=== PATIENT | female | born 1975 | race Caucasian/White ===

== ENCOUNTER 2021-02-20 08:27 | Outpatient (REF) | payer OTHER, SELFPAY ==
[2021-02-20 10:55] LABS: MANUAL DIFF FLAG NO
[2021-02-20 10:57] LABS: Basophils Percent Auto 0.3 % (0-2); Hematocrit 38.3 % (37.0-47.0); Hemoglobin 11.9 g/dl (12.0-16.0); Imm Gran Abs Auto 0.02 X10*3/uL (0.00-0.03); Imm Gran Pct Auto 0.3 % (0.0-0.4); Lymphocytes Absolute Auto 1.6 X10*3/uL (1.2-4.9); Lymphocytes Percent Auto 24.4 % (20-40); Mean Corpuscular HGB Conc 31.1 g/dl (31.0-35.0); Mean Corpuscular Hemoglobin 24.9 pg (27.0-33.0); Mean Corpuscular Volume 80.3 fL (80.0-98.0); Mean Platelet Volume 9.6 fL (9.4-12.3); Monocytes Absolute Auto 0.7 X10*3/uL (0.1-1.2); Monocytes Percent Auto 11.3 % (2-11); Neutrophils Percent Auto 63.7 % (45-73); Platelet Count 279 X10*3/uL (160-400); Red Blood Count 4.77 X10*6/uL (4.20-5.50); Red Cell Distribution Width 13.1 % (11.0-16.0); White Blood Count 6.4 X10*3/uL (4.8-10.8)
[2021-02-20 11:03] LABS: Appearance Urine CLOUDY; Color Urine YELLOW; Glucose Urine UA NEG (NEG); Leukocyte Esterase Urine TRACE (NEG); Nitrite Urine NEG (NEG); Specific Gravity - Urine >= 1.030 (1.005-1.025); UACC Culture Trigger YES; Urine Blood TRACE (NEG); Urine Ketones 5 MG/DL (NEG); Urine Protein 1+ MG/DL (NEG-TRACE)
[2021-02-20 11:34] LABS: Rheumatoid Factor < 15.0 IU/mL (<15.0)
[2021-02-20 11:50] LABS: Amorphous Sediment Urine 4+ /LPF
[2021-02-20 11:51] LABS: Calcium Oxalate Crystals Urine 2+ /LPF
[2021-02-20 11:52] LABS: WBC Urine 30-49 /HPF (0-4)
[2021-02-20 11:53] LABS: Bacteria Urine TRACE /LPF; RBC Urine 0 /HPF (0)
[2021-02-20 11:58] LABS: Folate 17.6 ng/mL (> or = 4.0)
[2021-02-20 12:38] LABS: Vitamin B12 454 pg/mL (200-900)
== END 2021-02-20 08:28 | disposition home or self-care (01) ==
LOC: HO.WFDLDS 08:27
PROVIDERS: Absent Provider Internal Medicine; Visit Provider Internal Medicine
DX: M79.605 Pain in left leg (principal); M79.604 Pain in right leg; R53.83 Other fatigue; I89.0 Lymphedema, not elsewhere classified; Z20.822 Contact with and (suspected) exposure to COVID-19
CPT/HCPCS: 36415; 81001; 81003; 82607; 82746; 85025; 86431; 87086; C9803; U0003; U0005

== ENCOUNTER 2022-09-17 11:44 | Outpatient (AMB) | payer OTHER, SELFPAY ==
[2022-09-17 11:46] VITALS: BP 110/82; PULSE 107; O2SAT 96; BMI 26.9
--- NOTE | 2022-09-17 11:46 | MHC.PC.OV ---
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 Accompanied by: Self / Same As Patient Allergies acetaminophen [ACETAMINOPHEN] Allergy (Severe, Verified 09/18/22 00:52) GASTRIC ULCERS erythromycin base [ERYTHROMYCIN BASE] Allergy (Severe, Verified 09/18/22 00:52) RASH Medication List - Last Reconciled 09/18/22 by Ronal Nj MD alprazolam 2 mg PO TID PRN 30 days escitalopram oxalate 20 mg PO DAILY gabapentin 800 mg PO Q8H 30 days tizanidine 4 mg PO TID PRN 30 days zolpidem 10 mg PO BEDTIME PRN 30 days Tobacco use date assessed: 09/17/22 Dental Screening Dental Screen Date: 09/17/22 Did you have a dental visit in the last 12 months?: No Did you have a dental problem in the last 6 months where you did not have access to dental care?: No Was dental information given to patient?: No HPI med follow up HPI Details Patient comes in today for her follow up visit - patient has not been seen for follow up since 01/2021 (her last visit was just a telehealth visit) States that both of her legs have been swollen for the past 6 months or so Recalls that she tried to get in to walk-in clinic about 6 months ago to get this checked out but was reportedly told that she could not be seen at the time as the clinic was too busy States that her swelling seems to have gradually subsided over the past month but she remains concerned about her kidneys due to the swelling Adds that she has been experiencing worsening of her low back pain lately and states that she now has a hard time walking because of her increased pain Was seeing Dr. Hernandez in the past, who was managing her pain with opioids but was suspended /discharged from pain management a couple of years ago in 2020 for inappropriate UDS (supposedly had fentanyl in her urine) - feels that she was unfairly discharged as she has never used Fentany in the past Adds that she has lots of problems with her feet and would like to know what can be done for them at this time - has significantly deformed and dyshydrotic toenails on all of her toes on both feet and the soles of her feet are numb and covered in thick calluses Will also need her Alprazolam Rx refilled today She denies any headaches or dizziness Denies any chest pains, no shortness of breath No nausea/vomiting, no abdominal pain No change in bowel habits noted PFSH Medical History Anxiety Cervical disc disease Insomnia Lumbar degenerative disc disease Onychomycosis Overweight (BMI 25.0-29.9) Post traumatic stress disorder (PTSD) Smoker Surgical History (Updated 09/18/22 @ 02:07 by Ronal Nj MD) History of laparoscopic cholecystectomy History of toe surgery Neck pain with history of cervical spinal surgery S/P lumbar spinal fusion Family History Father No problems noted. Mother Diabetes Hypertension Daughter Type II diabetes mellitus Social History Housing: Other Housing Other:: trailer Alcohol intake: never Patient Tobacco Use Status: Current everyday Tobacco user Cigarettes Per Day: 4 e-Cigarette/Vaping Use: Never Used Second Hand Smoke Exposure: Yes service: No Current occupational status: employed and disabled Cognitive needs: No Hearing needs: No Vision needs: No Questionnaire PHQ-9 Over the last 2 weeks, how often have you been bothered by any of the following problems? 1. Little interest or pleasure in doing things: several days 2. Feeling down, depressed, or hopeless: several days 3. Trouble falling or staying asleep, or sleeping too much: several days 4. Feeling tired or having little energy: several days 5. Poor appetite or overeating: several days 6. Feeling bad about yourself - or that you are a failure or have let yourself or your family down: not at all 7. Trouble concentrating on things, such as reading the newspaper or watching television: not at all 8. Moving or speaking so slowly that other people could have noticed. Or the opposite - being so fidgety or restless that you have been moving around a lot more than usual: not at all 9. Thoughts that you would be better off or of hurting yourself in some way: not at all Total score: 5 Depression Screening Interpretation: Positive Depression Screening Follow-up: Existing condition and In treatment 05610 - PHQ-9 Billing: Yes Source: Developed by Drs. Cheo Heredia, John Gaston and colleagues, with an educational krish from [employer]. Thrive Questionnaire Date Thrive assessed: 09/17/22 I am a: Patient What is your living situation today?: I have a steady place to live Within the past 12 months, did the food you bought not last and you didn't have the money to get more?: Never true Within the past 12 months, did you worry whether your food would run out before you got money to buy more?: Never true Do you have trouble paying for medicines?: No Do you have trouble getting transportation to medical appointments?: No Do you have trouble paying your heating and electricity bill?: No Do you have trouble taking care of your child, family member or friend?: No Do you have trouble with day-to-day activities such as bathing, preparing meals, shopping, managing finances, etc.?: No Are you currently unemployed and looking for a job?: No Are you interested in more education?: No Please select the resources that you would like help with: None Currently or been in a relationship where the following occur: no concerns reported AUDIT C Alcohol Use Questionnaire (AUDIT-C) 1. How often do you have a drink containing alcohol?: Never 3. How often do you have six or more drinks on one occasion?: Never Total Score: 0 Score Reviewed/Action Taken: Yes BON-7 AMB Questionnaire BON-7 Date BON - 7 assessed: 09/17/22 Feeling nervous, anxious, or on edge: 1 = Several days Not being able to stop or control worryin = Several days Worrying too much about different things: 1 = Several days Trouble relaxin = Several days Being so restless that it is hard to sit still: 1 = Several days Becoming easily annoyed or irritable: 1 = Several days Feeling afraid as if something awful might happen: 1 = Several days Total BON-7 score (0-4 normal; 5-9 mild; 10-14 moderate; 15-21 severe): 7 Source: Developed by Jennifer Louis Kurt Kroenke and colleagues, with an educational krish from [employer]. Review of Systems Const Denies chills, Denies fatigue, Denies fever(s) and Denies headache(s) ENT Denies dysphagia, Denies dizziness, Denies headache(s), Reports neck pain (chronic), Denies odynophagia and Denies sore throat Card Denies chest pain, Denies palpitations and Denies dyspnea Resp Denies cough and Denies dyspnea GI Denies abdominal pain, Denies constipation, Denies dysphagia, Denies heartburn, Denies diarrhea, Denies nausea, Denies odynophagia and Denies vomiting Denies difficulty voiding, Denies nocturia and Denies dysuria Musc Reports back pain (over the lower back - chronic and increased lately) and Reports neck pain (chronic) Skin/Breast Details: (+) deformed and thickened toenails on both feet; bottom of feet are covered in thick calluses and feel numb Neuro Denies dizziness and Denies headache(s) Psych Reports anxiety Endo Denies fatigue and Denies palpitations Physical exam (Primary Care) Vital Signs: Last Vital Signs Pulse 107 H 09/17/22 11:46 BP 110/82 09/17/22 11:46 Pulse Ox 96 09/17/22 11:46 Oxygen Delivery Method Room Air 09/17/22 11:46 BMI result Body Mass Index 26.9 Tobacco/Smoking Status: Tobacco use Status Tobacco use date assessed 09/17/22 09/17/22 11:53 Patient Tobacco Use Status Current everyday Tobacco 09/17/22 11:53 e-Cigarette/Vaping Use Never Used 09/17/22 11:53 PHQ-9: PHQ-9 Score PHQ-9: Total score 5 09/17/22 12:15 Depression Screening Interpretation: Positive Depression Screening Follow-up: Existing condition and In treatment Thrive Assessment: Date of Thrive Assessment Date Thrive assessed 09/17/22 09/17/22 11:53 Currently or been in a relationship where the following occur: no concerns reported Const General: no acute distress and alert HENMT Ears: TM's normal bilaterally and EAC's normal Throat: Yes posterior oropharynx normal and Yes tonsils normal (no TP congestion) Neck Neck: Yes no lymphadenopathy and Yes tender (over the cervical spine) Resp Auscultation: clear to auscultation bilaterally, no rales and no wheezes Cardio Rate: regular rate Rhythm: regular rhythm Heart sounds: no murmurs GI Palpation (GI): Soft to palpation and nontender Auscultation: normal bowel sounds Back/Spine/Pelvis Cervical Spine: Cervical spine tenderness Thoracic/Lumbar Spine: lumbar spinal tenderness Skin General skin exam: no rashes or lesions noted Rashes: no rashes Extrem Other: (+) onycholysis with significantly disfigured and dyshydrotic toenails on all of her toes on both feet; the soles of both feet are covered in thick calluses General: Yes no clubbing, cyanosis or edema Assessment and Plan Assessment & Plan (1) Swelling of both lower extremities: Code(s): M79.89 - Other specified soft tissue disorders Plan: Is most likely due to lymphedema; her swelling appears to have mostly subsided currently Will send her for some labs KASSIE for further evaluation (2) Onychomycosis: Code(s): B35.1 - Tinea unguium Plan: Will refer her to podiatry for further evaluation and management (3) Keratoderma: Code(s): Q82.8 - Other specified congenital malformations of skin Plan: Will refer her to podiatry for further evaluation and management (4) Lumbar degenerative disc disease: Code(s): M51.36 - Other intervertebral disc degeneration, lumbar region Plan: S/P lumbar spine fusion back in 2009, which she states did not really result in any significant improvement of her symptoms Reinforced activity and weight-lifting restrictions Continue Tizanidine 4 mg TID PRN and will try to increase her Gabapentin from 600 mg to 800 mg TID Due to her increasing low back pain lately, will try to see if we can have her get a repeat lumbar spine MRI done for further evaluation (5) Cervical disc disease: Code(s): M50.90 - Cervical disc disorder, unspecified, unspecified cervical region Plan: S/P ADCF of C5-C6 and C6-C7 in 2017 - states that her surgery did not really help much Continue Tizanidine 4 mg TID PRN; Gabapentin will be increased to 800 mg TID (6) Insomnia: Code(s): G47.00 - Insomnia, unspecified Qualifiers: Insomnia type: unspecified Qualified Code(s): G47.00 - Insomnia, unspecified Plan: Sleep hygiene reinforced Continue Zolpidem 10 mg Q HS PRN (7) Anxiety: Code(s): F41.9 - Anxiety disorder, unspecified Plan: (+) PTSD Continue Alprazolam 2 mg TID PRN (Rx refilled) and Escitalopram 20 mg QD (8) Smoker: Code(s): F17.200 - Nicotine dependence, unspecified, uncomplicated Plan: Counseled again on smoking cessation (9) Overweight (BMI 25.0-29.9): Code(s): E66.3 - Overweight Plan: Reinforced diet; exercise and weight loss are unrealistic given patient's physical issues Plan Follow up in 3 months Orders: Orders Comprehensive Vandiver. Panel Fast 09/17/22 E78.00 - Pure hypercholesterolemia, unspecified Lipid Panel 09/17/22 E78.00 - Pure hypercholesterolemia, unspecified TSH reflex Free T4 09/17/22 E78.00 - Pure hypercholesterolemia, unspecified Vitamin D 25-OH Total 09/17/22 E55.9 - Vitamin D deficiency, unspecified Complete Blood Count Auto Diff 09/17/22 I10 - Essential (primary) hypertension UA CC w/rflx Micro + Cult 09/17/22 R30.0 - Dysuria MR lumbar spine wo con 09/17/22 M51.16 - Intervertebral disc disorders with radiculopathy, lumbar region, M51.36 - Other intervertebral disc degeneration, lumbar region Erythrocyte Sedimentation Rate 09/17/22 I89.0 - Lymphedema, not elsewhere classified, M79.604 - Pain in right leg, M79.605 - Pain in left leg Vitamin B12 and Folate 09/17/22 E53.8 - Deficiency of other specified B group vitamins B Type Natriuretic Peptide 09/17/22 I89.0 - Lymphedema, not elsewhere classified Referrals Podiatry Referral B35.1 - Tinea unguium, Q82.8 - Other specified congenital malformations of skin Medications: Changed From gabapentin 600 mg PO Q8H 30 days 90 tabs 5RF M50.90 - Cervical disc disorder, unspecified, unspecified cervical region, M51.36 - Other intervertebral disc degeneration, lumbar region To gabapentin 800 mg PO Q8H 30 days 90 tabs 5RF M50.90 - Cervical disc disorder, unspecified, unspecified cervical region, M51.36 - Other intervertebral disc degeneration, lumbar region From alprazolam LAST RX UNLESS PATIENT IS SEEN FOR FOLLOW UP - not seen since 01/2021 2 mg PO TID 15 days PRN 45 tabs 0RF anxiety F41.9 - Anxiety disorder, unspecified, F43.10 - Post-traumatic stress disorder, unspecified To alprazolam 2 mg PO TID 30 days PRN 90 tabs 0RF anxiety F41.9 - Anxiety disorder, unspecified, F43.10 - Post-traumatic stress disorder, unspecified Discontinued nirmatrelvir-ritonavir 150-100 mg (Paxlovid) Discontinued Reason: Patient Completed Course PO PER PKG DIR - Take 1 tablet of each med (150 mg + 100 mg) BID x 5 days 1 ea 0RF Coding Level of Care Code Est Pt Level 4 (25651) Diagnoses Swelling of both lower extremities M79.89 Onychomycosis B35.1 Keratoderma Q82.8 Lumbar degenerative disc disease M51.36 Cervical disc disease M50.90 Insomnia G47.00 Insomnia type: unspecified Anxiety F41.9 Smoker F17.200 Overweight (BMI 25.0-29.9) E66.3
== END 2022-09-17 12:28 | disposition home or self-care (01) ==
PROVIDERS: PCP Internal Medicine; Visit Provider Internal Medicine
DX: M79.89 Other specified soft tissue disorders (principal); B35.1 Tinea unguium; F17.200 Nicotine dependence, unspecified, uncomplicated; F41.9 Anxiety disorder, unspecified; Q82.8 Other specified congenital malformations of skin; M51.36 Other intervertebral disc degeneration, lumbar region; M50.90 Cervical disc disorder, unspecified, unspecified cervical region; G47.00 Insomnia, unspecified; E66.3 Overweight
CPT/HCPCS: 99214

== ENCOUNTER 2023-04-22 11:32 | Outpatient (AMB) | payer OTHER, SELFPAY ==
--- NOTE | 2023-04-22 11:33 | MHC.PC.OV ---
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 Accompanied by: Self / Same As Patient Allergies acetaminophen [ACETAMINOPHEN] Allergy (Severe, Verified 05/07/23 11:59) GASTRIC ULCERS erythromycin base [ERYTHROMYCIN BASE] Allergy (Severe, Verified 05/07/23 11:59) RASH Medication List - Last Reconciled 04/22/23 by Ronal Nj MD alprazolam 2 mg PO TID 3 days escitalopram oxalate 20 mg PO DAILY gabapentin 800 mg PO Q8H 30 days tizanidine 4 mg PO TID PRN 30 days zolpidem 10 mg PO BEDTIME PRN 30 days Tobacco use date assessed: 04/22/23 Dental Screening Dental Screen Date: 04/22/23 Did you have a dental visit in the last 12 months?: No Did you have a dental problem in the last 6 months where you did not have access to dental care?: No Was dental information given to patient?: No HPI follow up HPI Details Patient's follow up visit / consultation today is done over video conference (iPhone/iPad/[employer]er/[employer]) - this is a TELEHEALTH visit Patient's current medications have been reviewed and verified with patient and/or caregiver/proxy and have been updated accordingly in the medication list Patient states that she has been experiencing increased cough and congestion, chills, malaise and sore throat for the past 4 to 5 days so she requested to have her appointment today changed over to a telehealth visit instead States that she has been coughing up thick greenish phlegm often lately Relates (+) fatigue but she denies any fever Denies any chest pains; relates (+) increased chest congestion and states that her breathing feels slightly tight at times No nausea/vomiting, no abdominal pain No change in bowel habits noted Adds that she has been experiencing increased pain over her lower back and in her legs lately States that she has not been able to stand up straight lately while walking and has to use a cane to help support herself and that she cannot get up on her own nowadays when she goes to lie down due to her increased low back pain Also notes that her upper back, around the mid-scapular area, feels numb - is not sure what this is from Lastly, states that her leg pains have also been getting worse and that the painful lesions (corns) as well as the long, thick and disfigured toenails on both of her feet continue to bother her and she would like to get a referral again to podiatry to have them try to help her address these issues KASSIE She also needs her Alprazolam Rx refilled today PFSH Medical History Insomnia Onychomycosis Overweight (BMI 25.0-29.9) Smoker Anxiety Post traumatic stress disorder (PTSD) Lumbar degenerative disc disease Cervical disc disease Surgical History Neck pain with history of cervical spinal surgery History of toe surgery History of laparoscopic cholecystectomy S/P lumbar spinal fusion Family History Father No problems noted. Mother Diabetes Hypertension Daughter Type II diabetes mellitus Social History Housing: Other Housing Other:: trailer Alcohol intake: never Patient Tobacco Use Status: Former Tobacco user Cigarettes Per Day: 4 e-Cigarette/Vaping Use: Currently Using Second Hand Smoke Exposure: Yes service: No Current occupational status: employed and disabled Cognitive needs: Yes (cane) Hearing needs: No Vision needs: No Questionnaire PHQ-9 Over the last 2 weeks, how often have you been bothered by any of the following problems? 1. Little interest or pleasure in doing things: several days 2. Feeling down, depressed, or hopeless: several days 3. Trouble falling or staying asleep, or sleeping too much: several days 4. Feeling tired or having little energy: several days 5. Poor appetite or overeating: several days 6. Feeling bad about yourself - or that you are a failure or have let yourself or your family down: not at all 7. Trouble concentrating on things, such as reading the newspaper or watching television: not at all 8. Moving or speaking so slowly that other people could have noticed. Or the opposite - being so fidgety or restless that you have been moving around a lot more than usual: not at all 9. Thoughts that you would be better off or of hurting yourself in some way: not at all Total score: 5 Depression Screening Interpretation: Positive Depression Screening Follow-up: Existing condition and In treatment Depression Screening Done: Yes 62229 - PHQ-9 Billing: Yes Source: Developed by Drs. Cheo Heredia, Jennifer Proctor, John Marie and colleagues, with an educational krish from [employer]. Thrive Questionnaire Date Thrive assessed: 04/22/23 I am a: Patient What is your living situation today?: I have a steady place to live Within the past 12 months, did the food you bought not last and you didn't have the money to get more?: Never true Within the past 12 months, did you worry whether your food would run out before you got money to buy more?: Never true Do you have trouble paying for medicines?: No Do you have trouble getting transportation to medical appointments?: No Do you have trouble paying your heating and electricity bill?: No Do you have trouble taking care of your child, family member or friend?: No Do you have trouble with day-to-day activities such as bathing, preparing meals, shopping, managing finances, etc.?: No Are you currently unemployed and looking for a job?: No Are you interested in more education?: No Please select the resources that you would like help with: None Currently or been in a relationship where the following occur: no concerns reported THRIVE Score: 0 AUDIT C Alcohol Use Questionnaire (AUDIT-C) 1. How often do you have a drink containing alcohol?: Never 3. How often do you have six or more drinks on one occasion?: Never Total Score: 0 Score Reviewed/Action Taken: Yes BON-7 AMB Questionnaire BON-7 Date BON - 7 assessed: 04/22/23 Feeling nervous, anxious, or on edge: 1 = Several days Not being able to stop or control worryin = Several days Worrying too much about different things: 1 = Several days Trouble relaxin = Several days Being so restless that it is hard to sit still: 1 = Several days Becoming easily annoyed or irritable: 1 = Several days Feeling afraid as if something awful might happen: 1 = Several days Total BON-7 score (0-4 normal; 5-9 mild; 10-14 moderate; 15-21 severe): 7 Source: Developed by Jennifer Louis B.W. Hitesh, John Marie and colleagues, with an educational krish from [employer]. Review of Systems Const Reports chills, Reports fatigue, Denies fever(s), Reports headache(s) (on and off) and Reports malaise ENT Denies dysphagia, Denies dizziness, Denies otalgia, Reports headache(s) (on and off), Reports nasal congestion, Denies odynophagia and Reports sore throat Card Denies chest pain, Denies rapid heart rate, Denies palpitations and Reports dyspnea on exertion (mild) Resp Reports chest congestion, Reports cough (coughs up thick greenish phlegm), Reports dyspnea on exertion (mild) and Denies wheezing GI Denies abdominal pain, Denies constipation, Denies dysphagia, Denies diarrhea, Denies nausea, Denies odynophagia and Denies vomiting Denies difficulty voiding, Denies nocturia and Denies urinary urgency Musc Details: mid-scapular area feels numb Reports back pain (increasing, over the lower back) and Reports radiating pain into limb Skin/Breast Details: (+) thickened and disfigured toenails on both feet; soles/bottom of feet are covered in thick calluses and feel numb Denies rash Neuro Denies dizziness and Reports headache(s) (on and off) Psych Reports anxiety and Reports depression Endo Reports fatigue and Denies palpitations Aller/Immun Denies wheezing Physical exam (Primary Care) Vital Signs: Physical examination is not performed as visit / consultation today is done over videoconference - Telehealth visit All physical findings indicated here, if present, are as per patient's and / or caregivers / proxy's report and visual inspection over videoconference, if appropriate or applicable Tobacco/Smoking Status: Tobacco use Status Tobacco use date assessed 04/22/23 04/22/23 11:35 Patient Tobacco Use Status Former Tobacco user 04/22/23 11:35 e-Cigarette/Vaping Use Currently Using 04/22/23 11:35 PHQ-9: PHQ-9 Score PHQ-9: Total score 5 04/22/23 13:08 Depression Screening Interpretation: Positive Depression Screening Follow-up: Existing condition and In treatment Thrive Assessment: Date of Thrive Assessment Date Thrive assessed 04/22/23 04/22/23 11:35 Currently or been in a relationship where the following occur: no concerns reported Telehealth Telehealth Location of provider rendering services: practice address Location of patient: address on file Patient Identification confirmed using: Name, : Yes Telehealth method: video (Iphone / Cubicle) Patient verbally consented to treatment: Yes Patient verbally consented to billing insurance company: Yes Patient informed of any privacy concerns related to visit: Yes Minutes spent on Phone/Video with Pt.: 23 Assessment and Plan Assessment & Plan (1) Acute bronchitis: Code(s): J20.9 - Acute bronchitis, unspecified Qualifiers: Bronchitis organism: unspecified organism Qualified Code(s): J20.9 - Acute bronchitis, unspecified Plan: Will start patient empirically on Augmentin 875 mg BID x 10 days Advised that if her respiratory symptoms persist or get worse despite Abx therapy, or if she starts experiencing increasing SOB, then she should seek medical attention KASSIE (2) Lumbar degenerative disc disease: Code(s): M51.36 - Other intervertebral disc degeneration, lumbar region Plan: Reinforced activity and weight-lifting restrictions to avoid aggravating her low back pain Due to her increasing low back pain, a repeat lumbar spine MRI was previously ordered for further evaluation but this appears to still be awaiting insurance approval and scheduling Continue Tizanidine 4 mg TID PRN and Gabapentin 800 mg TID (3) Cervical disc disease: Code(s): M50.90 - Cervical disc disorder, unspecified, unspecified cervical region Plan: S/P ADCF of C5-C6 and C6-C7 in 2017 - states that her surgery did not really help much Continue Tizanidine 4 mg TID PRN and Gabapentin 800 mg TID (4) Onychomycosis: Code(s): B35.1 - Tinea unguium Plan: Will refer her to podiatry for further evaluation and management (5) Keratoderma: Code(s): Q82.8 - Other specified congenital malformations of skin Plan: Will refer her to podiatry for further evaluation and management (6) Insomnia: Code(s): G47.00 - Insomnia, unspecified Qualifiers: Insomnia type: unspecified Qualified Code(s): G47.00 - Insomnia, unspecified Plan: Sleep hygiene reinforced Continue Zolpidem 10 mg Q HS PRN (7) Anxiety: Code(s): F41.9 - Anxiety disorder, unspecified Plan: (+) PTSD Continue Alprazolam 2 mg TID PRN (Rx refilled) and Escitalopram 20 mg QD (8) Smoker: Code(s): F17.200 - Nicotine dependence, unspecified, uncomplicated Plan: Counseled again on smoking cessation (9) Overweight (BMI 25.0-29.9): Code(s): E66.3 - Overweight Plan: Reinforced diet; exercise and weight loss are unrealistic given patient's physical issues Plan Follow up as scheduled next month Orders: Referrals Podiatry Referral Q82.8 - Other specified congenital malformations of skin, B35.1 - Tinea unguium Medications: New amoxicillin-pot clavulanate 875-125 mg 1 tab PO BID 20 tabs 0RF 10 days Changed From alprazolam 2 mg PO TID 3 days 9 tabs 0RF anxiety F41.9 - Anxiety disorder, unspecified, F43.10 - Post-traumatic stress disorder, unspecified To alprazolam 2 mg PO TID 90 tabs 0RF anxiety 30 days F41.9 - Anxiety disorder, unspecified, F43.10 - Post-traumatic stress disorder, unspecified Coding Level of Care Code Tele Est Pt Level 4 (04874) Diagnoses Acute bronchitis, unspecified organism J20.9 Bronchitis organism: unspecified organism Lumbar degenerative disc disease M51.36 Cervical disc disease M50.90 Onychomycosis B35.1 Keratoderma Q82.8 Insomnia, unspecified type G47.00 Insomnia type: unspecified Anxiety F41.9 Smoker F17.200 Overweight (BMI 25.0-29.9) E66.3
== END 2023-04-22 13:51 | disposition home or self-care (01) ==
LOC: HO.HMGH 11:32
PROVIDERS: PCP Internal Medicine; Visit Provider Internal Medicine
DX: J20.9 Acute bronchitis, unspecified (principal); M51.36 Other intervertebral disc degeneration, lumbar region; M50.90 Cervical disc disorder, unspecified, unspecified cervical region; B35.1 Tinea unguium; Q82.8 Other specified congenital malformations of skin; G47.00 Insomnia, unspecified; F41.9 Anxiety disorder, unspecified; F17.200 Nicotine dependence, unspecified, uncomplicated; E66.3 Overweight
CPT/HCPCS: 99213

== ENCOUNTER 2023-05-04 09:47 | Outpatient (REF) | payer OTHER, SELFPAY ==
[2023-05-04 10:11] LABS: MANUAL DIFF FLAG NO
[2023-05-04 10:37] LABS: Basophils Percent Auto 0.5 % (0-2); Hematocrit 37.3 % (37.0-47.0); Imm Gran Abs Auto 0.03 X10*3/uL (0.00-0.03); Imm Gran Pct Auto 0.8 % (0.0-0.4); Lymphocytes Absolute Auto 1.5 X10*3/uL (1.2-4.9); Lymphocytes Percent Auto 37.3 % (20-40); Mean Corpuscular HGB Conc 32.2 g/dl (31.0-35.0); Mean Corpuscular Hemoglobin 26.5 pg (27.0-33.0); Mean Corpuscular Volume 82.5 fL (80.0-98.0); Monocytes Absolute Auto 0.4 X10*3/uL (0.1-1.2); Monocytes Percent Auto 10.3 % (2-11); Neutrophils Percent Auto 51.1 % (45-73); Platelet Count 193 X10*3/uL (160-400); Red Blood Count 4.52 X10*6/uL (4.20-5.50); Red Cell Distribution Width 12.5 % (11.0-16.0)
[2023-05-04 10:44] LABS: Appearance Urine Clear; Color Urine Yellow; Glucose Urine UA Negative (Negative); Leukocyte Esterase Urine Negative (Negative); Nitrite Urine Negative (Negative); PH 6.5 (5.0-9.0); Urine Blood Negative (Negative); Urine Ketones Negative (Negative); Urine Protein Negative (Neg-Trace)
[2023-05-04 11:04] LABS: Alanine Aminotransferase 10 U/L (0-31); Albumin Level 4.1 g/dL (3.5-5.0); Alkaline Phosphatase 70 U/L (39-117); Anion Gap 7 (12-20); Aspartate Amino Transferase 16 U/L (5-31); Bilirubin Total 0.3 mg/dL (0.0-1.0); Blood Urea Nitrogen 13 mg/dL (9-16); Calcium 9.5 mg/dL (8.4-10.2); Carbon Dioxide 35 mmol/L (22-29); Chloride 102 mmol/L (96-108); Cholesterol 130 mg/dL (<200); Estimated Glomerular Filt Rate > 60; Glucose Fasting 95 mg/dL (60-99); HDL Cholesterol 48 mg/dL (>40); LDL Cholesterol Calculated 74 mg/dL (<100); Potassium 4.2 mmol/L (3.3-5.1); Sodium 140 mmol/L (135-145); Total Protein 7.1 g/dL (6.5-8.0); Triglycerides 41 mg/dL (<150)
[2023-05-04 11:13] LABS: Erythrocyte Sedimentation Rate 9 MM/HR (0-20)
[2023-05-04 11:21] LABS: TSH reflex Free T4 1.79 uIU/mL (0.32-4.0); Vitamin D 25-OH Total 36.7 ng/mL (>30)
[2023-05-04 11:32] LABS: Folate 11.3 ng/mL (> or = 4.0); Vitamin B12 833 pg/mL (200-900)
== END 2023-05-04 09:48 | disposition home or self-care (01) ==
LOC: HO.LAB 09:47
PROVIDERS: PCP Internal Medicine; Visit Provider Internal Medicine
DX: I10 Essential (primary) hypertension (principal); I89.0 Lymphedema, not elsewhere classified; E55.9 Vitamin D deficiency, unspecified; E53.8 Deficiency of other specified B group vitamins; R30.0 Dysuria; E78.00 Pure hypercholesterolemia, unspecified; M79.604 Pain in right leg; M79.605 Pain in left leg
CPT/HCPCS: 36415; 80053; 80061; 81003; 82306; 82607; 82746; 84443; 85025; 85652

== ENCOUNTER 2023-05-07 11:14 | Outpatient (AMB) | payer OTHER, SELFPAY ==
--- NOTE | 2023-05-07 11:20 | A.OFFPC_ITS ---
Vital Signs 05/07/23 11:22 Height 5 ft 7 in Weight 161 lb 2 oz BMI 25.2 BP 110/70 Blood Pressure Location Lt brachial Position Sitting Pulse 101 H Pulse Source Pulse Oximeter Pulse Oximetry (%) 97 Oxygen Delivery Method Room Air Intake Visit Reasons: follow up Intake Note: Patient is here to follow up on Lymphedema, Isomnia, LDDD. Screen Cleaner Required: No Procedures Nurse: Not Required per policy Accompanied by: Self / Same As Patient Allergies acetaminophen [ACETAMINOPHEN] Allergy (Severe, Verified 05/07/23 11:59) GASTRIC ULCERS erythromycin base [ERYTHROMYCIN BASE] Allergy (Severe, Verified 05/07/23 11:59) RASH Medication List - Last Reconciled 05/07/23 by Ronal Nj MD alprazolam 2 mg PO TID 30 days escitalopram oxalate 20 mg PO DAILY gabapentin 800 mg PO Q8H 30 days tizanidine 4 mg PO TID PRN 30 days zolpidem 10 mg PO BEDTIME PRN 30 days Tobacco use date assessed: 05/07/23 Dental Screening Dental Screen Date: 05/07/23 Did you have a dental visit in the last 12 months?: No Did you have a dental problem in the last 6 months where you did not have access to dental care?: No Was dental information given to patient?: No HPI follow up HPI Details Patient comes in today for her follow up visit States that she feels okay and that her respiratory symptoms from a couple of weeks ago have all cleared up completely Is still waiting for her appointment with podiatry She currently denies any headaches or dizziness Denies any chest pains, no SOB No nausea/vomiting, no abdominal pain No change in bowel habits noted Needs her Escitalopram Rx refilled Would also like to know how she did on her follow up labs done last month [facility] Medical History Insomnia Onychomycosis Overweight (BMI 25.0-29.9) Smoker Anxiety Post traumatic stress disorder (PTSD) Lumbar degenerative disc disease Cervical disc disease Surgical History Neck pain with history of cervical spinal surgery History of toe surgery History of laparoscopic cholecystectomy S/P lumbar spinal fusion Family History Father No problems noted. Mother Diabetes Hypertension Daughter Type II diabetes mellitus Social History Housing: Other Housing Other:: trailer Alcohol intake: never Patient Tobacco Use Status: Former Tobacco user Cigarettes Per Day: 4 e-Cigarette/Vaping Use: Currently Using Second Hand Smoke Exposure: Yes service: No Current occupational status: employed and disabled Cognitive needs: Yes (cane) Hearing needs: No Vision needs: No Questionnaire PHQ-9 Over the last 2 weeks, how often have you been bothered by any of the following problems? Depression Screening Interpretation: Positive Depression Screening Follow-up: Existing condition and In treatment Depression Screening Done: Yes Source: Developed by Drs. Cheo Heredia, Jennifer Proctor, John Marie and colleagues, with an educational krish from [email or web address]. Thrive Questionnaire Date Thrive assessed: 04/22/23 Currently or been in a relationship where the following occur: no concerns reported THRIVE Score: 0 BON-7 AMB Questionnaire BON-7 Date BON - 7 assessed: 04/22/23 Source: Developed by Drs. Cheo Heredia, Jennifer Proctor, John Marie and colleagues, with an educational krish from [email or web address]. Review of Systems Const Denies chills, Denies fatigue, Denies fever(s) and Denies headache(s) ENT Denies dysphagia, Denies dizziness, Denies otalgia, Denies headache(s), Reports neck pain (chronic), Denies odynophagia and Denies sore throat Card Denies chest pain, Denies palpitations and Denies dyspnea Resp Denies cough and Denies dyspnea GI Denies abdominal pain, Denies constipation, Denies dysphagia, Denies heartburn, Denies diarrhea, Denies nausea, Denies odynophagia and Denies vomiting Denies difficulty voiding, Denies nocturia and Denies dysuria Musc Reports back pain (over the lower back - chronic) and Reports neck pain (chronic) Skin/Breast Details: (+) deformed and thickened toenails on both feet; bottom of feet are covered in thick calluses and feel numb Denies rash Neuro Denies dizziness and Denies headache(s) Psych Reports anxiety Endo Denies fatigue and Denies palpitations Physical exam (Primary Care) Vital Signs: Last Vital Signs Pulse 101 H 05/07/23 11:22 BP 110/70 05/07/23 11:22 Pulse Ox 97 05/07/23 11:22 Oxygen Delivery Method Room Air 05/07/23 11:22 BMI result Body Mass Index 25.2 Tobacco/Smoking Status: Tobacco use Status Tobacco use date assessed 05/07/23 05/07/23 11:33 Patient Tobacco Use Status Former Tobacco user 05/07/23 11:33 e-Cigarette/Vaping Use Currently Using 05/07/23 11:33 Depression Screening Interpretation: Positive Depression Screening Follow-up: Existing condition and In treatment Thrive Assessment: Date of Thrive Assessment Date Thrive assessed 04/22/23 05/07/23 11:33 Currently or been in a relationship where the following occur: no concerns reported Const General: no acute distress and alert HENMT Ears: TM's normal bilaterally and EAC's normal Throat: Yes posterior oropharynx normal and Yes tonsils normal (no TP congestion) Neck Neck: Yes no lymphadenopathy and Yes tender (over the cervical spine) Thyroid: Thyroid normal Resp Auscultation: clear to auscultation bilaterally, no rales and no wheezes Cardio Rate: regular rate Rhythm: regular rhythm Heart sounds: no murmurs GI Palpation (GI): Soft to palpation and nontender Auscultation: normal bowel sounds Back/Spine/Pelvis Cervical Spine: Cervical spine tenderness Thoracic/Lumbar Spine: lumbar spinal tenderness Skin Rashes: no rashes Extrem Other: (+) onycholysis with significantly disfigured and dyshydrotic toenails on all of her toes on both feet; the soles of both feet are covered in thick calluses General: Yes no clubbing, cyanosis or edema Results Reviewed Results Reviewed: Laboratory Tests 05/04/23 05/04/23 10:08 10:10 WBC 4.0 L Hgb 12.0 Hct 37.3 Plt Count 193 D ESR 9 Sodium 140 Potassium 4.2 Creatinine 0.68 Estimated GFR > 60 Fasting Glucose 95 Calcium 9.5 AST 16 ALT 10 Triglycerides 41 Cholesterol 130 LDL Cholesterol, Calc 74 HDL Cholesterol 48 Vitamin B12 833 25-OH Vitamin D Total 36.7 TSH 1.79 Ur Specific [place] 1.020 Urine Protein Negative Urine Glucose (UA) Negative Urine Blood Negative Urine Nitrite Negative Ur Leukocyte Esterase Negative Assessment and Plan Assessment & Plan (1) Lumbar degenerative disc disease: Code(s): M51.36 - Other intervertebral disc degeneration, lumbar region Plan: S/P lumbar spine fusion back in 2009, which she states did not really result in any significant improvement of her back symptoms Reinforced activity and weight-lifting restrictions Continue Tizanidine 4 mg TID PRN and Gabapentin 800 mg TID Due to her increasing low back pain lately, a repeat lumbar spine MRI was previously ordered for further evaluation and she is now scheduled to have this done next month on 05/25/2023 (2) Cervical disc disease: Code(s): M50.90 - Cervical disc disorder, unspecified, unspecified cervical region Plan: S/P ADCF of C5-C6 and C6-C7 in 2017 - states that her surgery did not really help much Continue Tizanidine 4 mg TID PRN and Gabapentin 800 mg TID (3) Onychomycosis: Code(s): B35.1 - Tinea unguium Plan: She has been referred to podiatry for further evaluation and management and is currently awaiting an appointment (4) Keratoderma: Code(s): Q82.8 - Other specified congenital malformations of skin Plan: She has been referred to podiatry for further evaluation and management - is currently waiting for appointment to be scheduled (5) Insomnia: Code(s): G47.00 - Insomnia, unspecified Qualifiers: Insomnia type: unspecified Qualified Code(s): G47.00 - Insomnia, unspecified Plan: Sleep hygiene reinforced Continue Zolpidem 10 mg Q HS PRN (6) Anxiety: Code(s): F41.9 - Anxiety disorder, unspecified Plan: (+) PTSD Continue Alprazolam 2 mg TID PRN and Escitalopram 20 mg QD (Rx refilled) Result of her labs done last month reviewed and discussed with patient (7) Smoker: Code(s): F17.200 - Nicotine dependence, unspecified, uncomplicated Plan: Counseled again on smoking cessation (8) Overweight (BMI 25.0-29.9): Code(s): E66.3 - Overweight Plan: Reinforced diet; exercise and weight loss are unrealistic given patient's physical issues Plan Follow up in 4 months Medications: Refilled escitalopram oxalate 20 mg PO DAILY 90 tabs 1RF Coding Level of Care Code Est Pt Level 4 (64577) Diagnoses Lumbar degenerative disc disease M51.36 Cervical disc disease M50.90 Onychomycosis B35.1 Keratoderma Q82.8 Insomnia, unspecified type G47.00 Insomnia type: unspecified Anxiety F41.9 Smoker F17.200 Overweight (BMI 25.0-29.9) E66.3
[2023-05-07 11:22] VITALS: BP 110/70; PULSE 101; O2SAT 97; BMI 25.2
== END 2023-05-07 12:08 | disposition home or self-care (01) ==
PROVIDERS: PCP Internal Medicine; Visit Provider Internal Medicine
DX: M51.36 Other intervertebral disc degeneration, lumbar region (principal); M50.90 Cervical disc disorder, unspecified, unspecified cervical region; B35.1 Tinea unguium; Q82.8 Other specified congenital malformations of skin; G47.00 Insomnia, unspecified; F41.9 Anxiety disorder, unspecified; F17.200 Nicotine dependence, unspecified, uncomplicated; E66.3 Overweight
CPT/HCPCS: 99214

== ENCOUNTER 2023-10-23 12:04 | Emergency (ER) | payer MEDICARE, SELFPAY ==
[2023-10-23 12:18] VITALS: BP 101/72; PULSE 87; RESP 18; TEMP 37.1; O2SAT 96; BMI 19.4
--- NOTE | 2023-10-23 12:20 | ED_ITS ---
HPI - Skin/Abscess/Foreign Bdy General Chief complaint: Skin/Abscess/Foreign Body Stated complaint: spider bite History of Present Illness HPI narrative: LWCT Related Data Previous Rx's ?Medication ?Instructions ?Recorded tizanidine 4 mg tablet 4 mg PO TID PRN muscle spasticity 10/20/22 30 days #90 tabs gabapentin 800 mg tablet 800 mg PO Q8H 30 days #90 tabs 01/18/23 escitalopram oxalate 20 mg tablet 20 mg PO DAILY #90 tabs 05/07/23 zolpidem 10 mg tablet 10 mg PO BEDTIME PRN insomnia 30 08/27/23 days #30 tabs alprazolam 2 mg tablet 2 mg PO TID anxiety 30 days #90 09/27/23 tabs Allergies Allergy/AdvReac Type Severity Reaction Status Date / Time acetaminophen [ACETAMINOPHEN] Allergy Severe GASTRIC Verified 10/23/23 12:23 ULCERS erythromycin base Allergy Severe RASH Verified 10/23/23 12:23 [ERYTHROMYCIN BASE] PMFSH Past Medical History Medical History Insomnia Onychomycosis Overweight (BMI 25.0-29.9) Smoker Anxiety Post traumatic stress disorder (PTSD) Lumbar degenerative disc disease Cervical disc disease Surgical History Neck pain with history of cervical spinal surgery History of toe surgery History of laparoscopic cholecystectomy S/P lumbar spinal fusion Family History Family History Father No problems noted. Mother Diabetes Hypertension Daughter Type II diabetes mellitus Social History Social History Housing: Other Housing Other:: trailer Alcohol intake: never Patient Tobacco Use Status: Former Tobacco user Cigarettes Per Day: 4 e-Cigarette/Vaping Use: Currently Using Second Hand Smoke Exposure: Yes Advance Directives: No Advance Directives Information Provided: No Do you have a plan to hurt others: No Plan service: No Current occupational status: employed and disabled Cognitive needs: Yes (cane) Hearing needs: No Vision needs: No Physical Exam 2 Vital Signs: Vital Signs: Last Vital Signs Temp 98.8 F 10/23/23 12:18 Pulse 87 10/23/23 12:18 Resp 18 10/23/23 12:18 BP 101/72 10/23/23 12:18 Pulse Ox 96 10/23/23 12:18 O2 Del Method Room Air 10/23/23 12:18 BMI result Body Mass Index 19.4 Course Course Course Narrative: This is an RME performed by Tiffany Cade CNP: Additional HPI, ROS, PE not included below will be deferred to primary provider. Patient is a 48-year-old female presents for evaluation wound to the right forearm. states 3 days with a black center and significantly larger than it is currently. Past 2 days has now been draining a clear-bloody, the redness and swelling he walks significantly due. She states that this was due to a spider bite. She had some additional lumps on the proximal forearm which have improved. Medical Decision Making Lab Data 10/23/23 12:29 10/23/23 12:29 Labs: Lab Results 10/23/23 Range/Units 12:29 WBC 3.1 L (4.8-10.8) X10*3/uL RBC 4.42 (4.20-5.50) X10*6/uL Hgb 10.8 L (12.0-16.0) g/dl Hct 34.2 L (37.0-47.0) % MCV 77.4 L (80.0-98.0) fL MCH 24.4 L (27.0-33.0) pg MCHC 31.6 (31.0-35.0) g/dl RDW 13.6 (11.0-16.0) % Plt Count 197 (160-400) X10*3/uL MPV 9.0 L (9.4-12.3) fL Immature Gran % (Auto) 0.3 (0.0-0.4) % Neut % (Auto) 56.2 (45-73) % Lymph % (Auto) 26.2 (20-40) % Grayson % (Auto) 17.0 H (2-11) % Eos % (Auto) 0.0 (0-4) % Baso % (Auto) 0.3 (0-2) % Lymph # (Auto) 0.8 L (1.2-4.9) X10*3/uL Grayson # (Auto) 0.5 (0.1-1.2) X10*3/uL Eos # (Auto) 0.0 (0.0-0.4) X10*3/uL Baso # (Auto) 0.0 (0.0-0.2) X10*3/uL Abs Immat Gran (auto) 0.01 (0.00-0.03) X10*3/uL Absolute Neuts (auto) 1.7 L (2.0-8.3) x10*3/uL Absolute Nucleated RBC 0.000 (0.0-0.012) X10*3/uL Nucleated RBC % (auto) 0.0 (0.0-0.2) /100WBC Sodium 136 (135-145) mmol/L Potassium 4.2 (3.3-5.1) mmol/L Chloride 97 (96-108) mmol/L Carbon Dioxide 32 H (22-29) mmol/L Anion Gap 11 L (12-20) BUN 17 H (9-16) mg/dL Creatinine 0.74 (0.5-1.4) mg/dL Estim Creat Clear Calc 81.6 Estimated GFR > 60 Random Glucose 136 H (60-115) mg/dL Calcium 9.5 (8.4-10.2) mg/dL Total Bilirubin 0.5 (0.0-1.0) mg/dL AST 18 (5-31) U/L ALT 16 (0-31) U/L Alkaline Phosphatase 143 H (39-117) U/L Total Protein 7.1 (6.5-8.0) g/dL Albumin 3.7 (3.5-5.0) g/dL Discharge Plan Discharge Clinical Impression: Insect bites Patient Disposition: Left W/O Completing Treatment Prescriptions: No Action tizanidine 4 mg tablet 4 mg PO TID PRN (Reason: muscle spasticity) 30 Days Qty: 90 5RF gabapentin 800 mg tablet 800 mg PO Q8H 30 Days Qty: 90 5RF zolpidem 10 mg tablet 10 mg PO BEDTIME PRN (Reason: insomnia) 30 Days Qty: 30 1RF alprazolam 2 mg tablet 2 mg PO TID 30 Days Qty: 90 0RF escitalopram oxalate 20 mg tablet 20 mg PO DAILY Qty: 90 1RF Discharge Date/Time: 10/23/23 13:06
[2023-10-23 12:33] LABS: MANUAL DIFF FLAG NO
[2023-10-23 12:34] LABS: Basophils Percent Auto 0.3 % (0-2); Hematocrit 34.2 % (37.0-47.0); Hemoglobin 10.8 g/dl (12.0-16.0); Imm Gran Abs Auto 0.01 X10*3/uL (0.00-0.03); Imm Gran Pct Auto 0.3 % (0.0-0.4); Lymphocytes Absolute Auto 0.8 X10*3/uL (1.2-4.9); Lymphocytes Percent Auto 26.2 % (20-40); Mean Corpuscular HGB Conc 31.6 g/dl (31.0-35.0); Mean Corpuscular Hemoglobin 24.4 pg (27.0-33.0); Mean Corpuscular Volume 77.4 fL (80.0-98.0); Monocytes Absolute Auto 0.5 X10*3/uL (0.1-1.2); Neutrophils Absolute Auto 1.7 x10*3/uL (2.0-8.3); Neutrophils Percent Auto 56.2 % (45-73); Platelet Count 197 X10*3/uL (160-400); Red Blood Count 4.42 X10*6/uL (4.20-5.50); Red Cell Distribution Width 13.6 % (11.0-16.0); White Blood Count 3.1 X10*3/uL (4.8-10.8)
[2023-10-23 12:52] LABS: Alanine Aminotransferase 16 U/L (0-31); Albumin Level 3.7 g/dL (3.5-5.0); Alkaline Phosphatase 143 U/L (39-117); Anion Gap 11 (12-20); Aspartate Amino Transferase 18 U/L (5-31); Bilirubin Total 0.5 mg/dL (0.0-1.0); Blood Urea Nitrogen 17 mg/dL (9-16); Calcium 9.5 mg/dL (8.4-10.2); Carbon Dioxide 32 mmol/L (22-29); Chloride 97 mmol/L (96-108); Creatinine Clr Calc Pharmacy 81.6; Estimated Glomerular Filt Rate > 60; Glucose Random 136 mg/dL (60-115); Potassium 4.2 mmol/L (3.3-5.1); Sodium 136 mmol/L (135-145); Total Protein 7.1 g/dL (6.5-8.0)
== END 2023-10-23 13:06 | disposition left against medical advice (07) ==
PROVIDERS: Nurse Practitioner Family; Emergency Provider Emergency Medicine; PCP Internal Medicine
DX: S50.861A Insect bite (nonvenomous) of right forearm, initial encounter (principal); W57.XXXA Bitten or stung by nonvenomous insect and other nonvenomous arthropods, initial encounter; Y93.9 Activity, unspecified; Y92.9 Unspecified place or not applicable; Y99.9 Unspecified external cause status; F17.200 Nicotine dependence, unspecified, uncomplicated
CPT/HCPCS: 36415; 80053; 85025; 99281

== ENCOUNTER → 2023-11-30 13:38 | Outpatient (BNVA) | payer MEDICARE, SELFPAY | PROVIDERS: PCP Internal Medicine ==

== ENCOUNTER 2024-12-04 12:46 | Outpatient (AMB) | payer SELFPAY ==
--- OUTSIDE RECORDS SUMMARY | 2024-12-04 12:49 | XMS_ITS | Clinical Summary ---
Author Organization [facility] Address [address] [place] [address] Care Team Providers Care Data Conversion Developer Name Role Phone Unavailable Primary Care Provider Unavailabl e Source Comments PLEASE NOTE, if this patient is a minor, it may be UNLAWFUL to discuss sensitive information that is contained in these records (such as FAMILY PLANNING, MENTAL HEALTH or SUBSTANCE ABUSE) with the minor patient's parent or other person without the patient's specific authorization.[facility] Allergies Active Allergy Reactions Criticality Noted Date Comments Azithromycin Rash 02/18/2015 Medications citalopram (CELEXA) 20 mg tabletIndication s:Anxiety and depression Take 1 Tab by mouth once daily. Take 3 tabs daily ( 60 mg) 5 Active ALPRAZolam (XANAX) 1 mg tabletIndication s:Anxiety and depression Take 1 Tab by mouth 3 (three) times daily as needed for sleep or anxiety. 5 Active zolpidem (AMBIEN) 5 mg tabletIndication s:Insomnia, unspecified type Take 1 Tab by mouth nightly at bedtime as needed for sleep. Take immediately before bedtime. 5 Active oxyCODONE (ROXICODONE) 15 mg tabletIndication s:Chronic back pain Take 1 Tab by mouth 3 (three) times daily as needed for pain. 5 Active oxymorphone 15 mg [id number]: Chronic back pain Take 1 Tab by mouth 2 (two) times daily. 5 Active Active Problems Problem Noted Date Diagnosed Date Chronic back pain 02/18/2015 Narcotic drug use 02/18/2015 Obesity (BMI 30-39.9) 02/18/2015 Insomnia 02/18/2015 Anxiety and depression 02/18/2015 Family History Medical History Relation Name Comments Diabetes Daughter Diabetes Mother Relation Name Status Comments Daughter Alive Mother Alive Social History Tobacco Use Types Packs/Day Years Used Date Smoking Tobacco: Some Days Comments:smokes 1pack / 6 da ys - Alcohol Use Standard Drinks/Week Comments No 0 (1 standard drink = 0.6 oz pur e alcohol) Comments No Sex and Gender Information Value Date Recorded Sex Assigned at Not on file Legal Sex Female 11:57 AM PST Gender Identity Not on file Sexual Orientation Not on file Last Filed Vital Signs Vital Sign Reading Time Taken Comments Blood Pressure 116/80 02/18/2015 3:17 PM EST Pulse 73 02/18/2015 3:17 PM EST Temperature 36.8 C (98.3 F) 02/18/2015 3:17 PM EST Respiratory Rate 18 02/18/2015 3:17 PM EST Oxygen Saturation - - Inhaled Oxygen Concentration - - Weight 103.7 kg (228 lb 11.2 oz) 02/18/2015 3:17 PM EST Height 174.4 cm (5' 8.66 ) 02/18/2015 3:17 PM ES T Body Mass Index 34.11 02/18/2015 3:17 PM EST Plan of Treatment Not on file Insurance [place]
--- NOTE | 2024-12-04 12:57 | MHC.PC.OV ---
Vital Signs 12/04/24 12:58 Height 5 ft 6 in Weight 151 lb BMI 24.4 BP 110/58 L Blood Pressure Location Lt brachial Position Sitting Pulse 66 Pulse Source Pulse Oximeter Pulse Oximetry (%) 99 Oxygen Delivery Method Room Air Intake Visit Reasons: follow up med refill Director Erp Required: No Accompanied by: Self / Same As Patient Allergies acetaminophen (ACETAMINOPHEN) Allergy (Severe, Verified 12/04/24 13:16) GASTRIC ULCERS erythromycin base (ERYTHROMYCIN BASE) Allergy (Severe, Verified 12/04/24 13:16) RASH Medication List - Last Reconciled 12/04/24 by Ronal Nj MD alprazolam 2 mg PO TID 30 days escitalopram oxalate 20 mg PO DAILY gabapentin 800 mg PO Q8H 30 days tizanidine 4 mg PO TID PRN 30 days zolpidem 10 mg PO BEDTIME PRN 30 days Tobacco use date assessed: 12/04/24 Dental Screening Dental Screen Date: 12/04/24 Did you have a dental visit in the last 12 months?: Yes Did you have a dental problem in the last 6 months where you did not have access to dental care?: No Was dental information given to patient?: Patient has dentist HPI follow up med refill HPI Details Patient comes in today for her follow up visit - she has not been seen since 05/07/2023 Patient states that she currently has no health insurance coverage and/or no transportation States that she mainly just needs her Zolpidem and Alprazolam Rx refilled today She denies any headaches or dizziness Denies any chest pains, no SOB No nausea/vomiting, no abdominal pain No change in bowel habits noted PFSH Medical History Insomnia Onychomycosis Overweight (BMI 25.0-29.9) Smoker Anxiety Post traumatic stress disorder (PTSD) Lumbar degenerative disc disease Cervical disc disease Surgical History Neck pain with history of cervical spinal surgery History of toe surgery History of laparoscopic cholecystectomy S/P lumbar spinal fusion Family History Father No problems noted. Mother Diabetes Hypertension Daughter Type II diabetes mellitus Social History Housing: Other Housing Other:: trailer Alcohol intake: never Patient Tobacco Use Status: Former Tobacco user Cigarettes Per Day: 4 e-Cigarette/Vaping Use: Currently Using Second Hand Smoke Exposure: Yes service: No Current occupational status: employed and disabled Cognitive needs: Yes (cane) Hearing needs: No Vision needs: No Questionnaire PHQ-9 Over the last 2 weeks, how often have you been bothered by any of the following problems? 1. Little interest or pleasure in doing things: not at all 2. Feeling down, depressed, or hopeless: not at all 3. Trouble falling or staying asleep, or sleeping too much: several days 4. Feeling tired or having little energy: not at all 5. Poor appetite or overeating: not at all 6. Feeling bad about yourself - or that you are a failure or have let yourself or your family down: not at all 7. Trouble concentrating on things, such as reading the newspaper or watching television: not at all 8. Moving or speaking so slowly that other people could have noticed. Or the opposite - being so fidgety or restless that you have been moving around a lot more than usual: not at all 9. Thoughts that you would be better off or of hurting yourself in some way: not at all Total score: 1 Depression Screening Interpretation: Negative Depression Screening Done: Yes 38968 - PHQ-9 Billing: Yes Source: Developed by Drs. Cheo Heredia, Jennifer Proctor, John Marie and colleagues, with an educational krish from [employer]. Thrive Questionnaire Date Thrive assessed: 12/04/24 I am a: Patient What is your living situation today?: I have a steady place to live Within the past 12 months, did the food you bought not last and you didn't have the money to get more?: I choose not to answer this question Within the past 12 months, did you worry whether your food would run out before you got money to buy more?: I choose not to answer this question Do you have trouble paying for medicines?: I choose not to answer this question Do you have trouble getting transportation to medical appointments?: Yes Do you have trouble paying your heating and electricity bill?: I choose not to answer this question Do you have trouble taking care of your child, family member or friend?: No Do you have trouble with day-to-day activities such as bathing, preparing meals, shopping, managing finances, etc.?: No Are you currently unemployed and looking for a job?: No Are you interested in more education?: No Please select the resources that you would like help with: Housing/Intermediate and Transportation Currently or been in a relationship where the following occur: No concerns reported THRIVE Score: 1 AUDIT C Alcohol Use Questionnaire (AUDIT-C) 1. How often do you have a drink containing alcohol?: Never 3. How often do you have six or more drinks on one occasion?: Never Total Score: 0 Score Reviewed/Action Taken: Yes BON-7 AMB Questionnaire BON-7 Date BON - 7 assessed: 12/04/24 Feeling nervous, anxious, or on edge: 0 = Not at all Not being able to stop or control worryin = Several days Worrying too much about different things: 1 = Several days Trouble relaxin = More than half the days Being so restless that it is hard to sit still: 1 = Several days Becoming easily annoyed or irritable: 0 = Not at all Feeling afraid as if something awful might happen: 0 = Not at all Total BON-7 score (0-4 normal; 5-9 mild; 10-14 moderate; 15-21 severe): 5 Source: Developed by Drs. Cheo Heredia, Jennifer Proctor, John Marie and colleagues, with an educational krish from [employer]. Review of Systems Const Denies chills, Reports difficulty sleeping (Rx helping), Denies fatigue, Denies fever(s) and Denies headache(s) ENT Denies dysphagia, Denies dizziness, Denies otalgia, Denies headache(s), Reports neck pain (chronic), Denies odynophagia and Denies sore throat Card Denies chest pain, Denies palpitations and Denies dyspnea Resp Denies chest congestion, Denies cough and Denies dyspnea GI Denies abdominal pain, Denies constipation, Denies dysphagia, Denies heartburn, Denies diarrhea, Denies nausea, Denies odynophagia and Denies vomiting Denies difficulty voiding, Denies nocturia and Denies dysuria Musc Reports back pain (over the lower back - chronic) and Reports neck pain (chronic) Skin/Breast Denies rash Neuro Denies dizziness and Denies headache(s) Psych Reports anxiety Endo Denies fatigue and Denies palpitations Physical exam (Primary Care) Vital Signs: Last Vital Signs Pulse 66 12/04/24 12:58 BP 110/58 L 12/04/24 12:58 Pulse Ox 99 12/04/24 12:58 Oxygen Delivery Method Room Air 12/04/24 12:58 BMI result Body Mass Index 24.4 Tobacco/Smoking Status: Tobacco use Status Tobacco use date assessed 12/04/24 12/04/24 13:04 Patient Tobacco Use Status Former Tobacco user 12/04/24 13:04 e-Cigarette/Vaping Use Currently Using 12/04/24 13:04 PHQ-9: PHQ-9 Score PHQ-9: Total score 1 12/04/24 13:23 Depression Screening Interpretation: Negative Thrive Assessment: Date of Thrive Assessment Date Thrive assessed 12/04/24 12/04/24 13:04 Currently or been in a relationship where the following occur: No concerns reported Const General: no acute distress and alert HENMT Ears: TM's normal bilaterally and EAC's normal Throat: Yes posterior oropharynx normal and Yes tonsils normal (no TP congestion) Neck Neck: No lymphadenopathy and Yes tender (over the cervical spine) Thyroid: Thyroid normal Resp Auscultation: clear to auscultation bilaterally, no rales and no wheezes Cardio Rate: regular rate Rhythm: regular rhythm Heart sounds: no murmurs GI Palpation (GI): Soft to palpation and nontender Auscultation: normal bowel sounds General: Yes no CVA tenderness Back/Spine/Pelvis Back: no CVA tenderness Cervical Spine: Cervical spine tenderness Thoracic/Lumbar Spine: lumbar spinal tenderness Skin Rashes: no rashes Extrem General: Yes no clubbing, cyanosis or edema Coding Level of Care Code Est Pt Level 3 (04998) Diagnoses Degeneration of intervertebral disc of lumbar region with discogenic back pain M51.360 Disc-related pain type: discogenic back pain only Cervical disc disease M50.90 Insomnia, unspecified type G47.00 Insomnia type: unspecified Anxiety F41.9 Post traumatic stress disorder (PTSD) F43.10 Additional Codes PHQ-9 - 49341 - PHQ-9 Billing: Yes ([id number]) Assessment & Plan Assessment & Plan (1) Lumbar degenerative disc disease: Code(s): M51.36 - Other intervertebral disc degeneration, lumbar region Category: Medical Qualifiers: Disc-related pain type: discogenic back pain only Qualified Code(s): M51.360 - Other intervertebral disc degeneration, lumbar region with discogenic back pain only Plan: S/P lumbar spine fusion back in 2009, which she states did not really result in any significant improvement of her back symptoms Reinforced activity and weight-lifting restrictions Continue Tizanidine 4 mg TID PRN and Gabapentin 800 mg TID She had a repeat lumbar spine MRI scheduled for May 2023 for further evaluation of her worsening symptoms at the time but patient reportedly no-showed her appointment back then (2) Cervical disc disease: Code(s): M50.90 - Cervical disc disorder, unspecified, unspecified cervical region Category: Medical Plan: S/P ADCF of C5-C6 and C6-C7 in 2017 - states that her surgery did not really help much Continue Tizanidine 4 mg TID PRN and Gabapentin 800 mg TID (3) Insomnia: Code(s): G47.00 - Insomnia, unspecified Category: Medical Qualifiers: Insomnia type: unspecified Qualified Code(s): G47.00 - Insomnia, unspecified Plan: Sleep hygiene reinforced Continue Zolpidem 10 mg Q HS PRN - Rx refilled (4) Anxiety: Code(s): F41.9 - Anxiety disorder, unspecified Category: Medical Plan: (+) PTSD Continue Alprazolam 2 mg TID PRN and Escitalopram 20 mg QD (5) Post traumatic stress disorder (PTSD): Code(s): F43.10 - Post-traumatic stress disorder, unspecified Category: Medical Plan: Continue Escitalopram 20 mg QD Plan To return in 3 to 4 months for her next annual physical examination Patient is advised to get her (fasting) labs done just before she comes in for her annual physical examination in 3 to 4 months Orders: Orders UA CC w/rflx Micro + Cult 03/17/25 R30.0 - Dysuria, Z00.00 - Encounter for general adult medical examination without abnormal findings Vitamin D 25-OH Total 03/17/25 E55.9 - Vitamin D deficiency, unspecified, Z00.00 - Encounter for general adult medical examination without abnormal findings Complete Blood Count Auto Diff 03/17/25 D64.9 - Anemia, unspecified, Z00.00 - Encounter for general adult medical examination without abnormal findings Comprehensive [place]. Panel Fast 03/17/25 E78.00 - Pure hypercholesterolemia, unspecified, Z00.00 - Encounter for general adult medical examination without abnormal findings Lipid Panel 03/17/25 E78.00 - Pure hypercholesterolemia, unspecified, Z00.00 - Encounter for general adult medical examination without abnormal findings TSH reflex Free T4 03/17/25 E78.00 - Pure hypercholesterolemia, unspecified, Z00.00 - Encounter for general adult medical examination without abnormal findings Medications: Refilled alprazolam 2 mg PO TID 90 tabs 0RF anxiety 30 days F41.9 - Anxiety disorder, unspecified, F43.10 - Post-traumatic stress disorder, unspecified zolpidem 10 mg PO BEDTIME PRN 30 tabs 1RF insomnia 30 days G47.00 - Insomnia, unspecified
[2024-12-04 12:58] VITALS: BP 110/58; PULSE 66; O2SAT 99; BMI 24.4
== END 2024-12-04 13:27 | disposition home or self-care (01) ==
LOC: HO.HMCH 12:47
PROVIDERS: PCP Internal Medicine; Visit Provider Internal Medicine
DX: M51.360 Other intervertebral disc degeneration, lumbar region with discogenic back pain only (principal); M50.90 Cervical disc disorder, unspecified, unspecified cervical region; G47.00 Insomnia, unspecified; F41.9 Anxiety disorder, unspecified; F43.10 Post-traumatic stress disorder, unspecified

== ENCOUNTER → 2024-12-04 12:46 | Outpatient (BNVA) | payer SELFPAY | PROVIDERS: PCP Internal Medicine; Visit Provider Internal Medicine | DX: M51.360 Other intervertebral disc degeneration, lumbar region with discogenic back pain only (principal); M50.90 Cervical disc disorder, unspecified, unspecified cervical region; G47.00 Insomnia, unspecified; F41.9 Anxiety disorder, unspecified; F43.10 Post-traumatic stress disorder, unspecified; Z79.899 Other long term (current) drug therapy; Z98.1 Arthrodesis status; Z13.31 Encounter for screening for depression; Z13.39 Encounter for screening examination for other mental health and behavioral disorders | CPT/HCPCS: 96127; 99212 ==